=== PATIENT | male | born 1970 | race Two or more races ===

== ENCOUNTER 2023-08-20 22:00 | Emergency (ER) | payer SELFPAY ==
[~2023-08-20] VITALS: Ht 180.3 cm; Wt 75.0 kg
[2023-08-20 22:38] VITALS: PULSE 95; O2SAT 98
[2023-08-20 23:35] LABS: Hematocrit 41.8 % (41.0-53.0); Hemoglobin 14.4 g/dL (13.5-17.5); Red Blood Cells 4.21 10^6/uL (4.5-5.90); Red Cell Distribution Width 14.9 % (11.8-14.3); White Blood Cell 5.1 10^3/uL (4.4-10.8)
[2023-08-20 23:37] LABS: Basophils # (auto) 0 10 ^3/uL (0-0.2); Basophils % (auto) 0.4 % (0.0-2.0); Eosinophils # (auto) 0 10 ^3/uL (0-0.8); Lymphocytes # (auto) 0.6 10 ^3/uL (0.4-5.4); Lymphocytes % (auto) 12.5 % (10.0-50.0); Mean Corpuscular Hemoglobin 34.2 pg (28.0-32.0); Mean Corpuscular Hgb Conc. 34.5 g/dL (32.0-36.0); Mean Corpuscular Volume 99.3 fL (80.0-100.0); Monocytes # (auto) 0.7 10 ^3/uL (0-1.3); Monocytes % (auto) 14.2 % (0.0-12.0); Neutrophils # (auto) 3.8 10 ^3/uL (1.6-8.6); Neutrophils % (auto) 72.9 % (37.0-80.0); Nucleated Red Blood Cells % 0.5 %
[2023-08-20 23:59] LABS: Alanine Aminotransferase 78 U/L (7-40); Albumin 4.3 g/dL (3.2-4.8); Alkaline Phosphatase 86 U/L (46-116); Anion Gap 8 (5-15); Aspartate Aminotransferase 149 U/L (13-40); BUN/Creatinine Ratio 9.5 (10.0-20.0); Blood Urea Nitrogen 13 mg/dL (9-23); Calcium 9.7 mg/dL (8.5-10.1); Carbon Dioxide 25 mmol/L (20-30); Chloride 99 mmol/L (98-107); Glucose 100 mg/dL (74-106); Potassium 3.3 mmol/L (3.5-5.1); Sodium 132 mmol/L (136-145)
[2023-08-21] LABS: Bilirubin, Total 4.6 mg/dL (0.2-1.0); Total Protein 7.9 g/dL (5.7-8.2)
[2023-08-21 00:30] LABS: Platelet Estimate Decreased
[2023-08-21 00:31] LABS: Large Platelets FEW
[2023-08-21] MEDS: diphenhdrAMINE HCL 50 MG/1 ML VL IV ONE (01:15)
[2023-08-21] MEDS: ACETAMINOPHEN 325 MG TAB PO ONE (01:15)
[2023-08-21] MEDS: SODIUM CHLORIDE 0.9% 1,000 ML IVB ONE (01:15)
[2023-08-21] MEDS: SODIUM CHLORIDE 0.9% 1,000 ML IV ONE (01:15)
[2023-08-21] MEDS: LORazepam 2MG/ML-1ML VIAL IV ONE ×2 (01:15)
[2023-08-21 01:37] LABS: Magnesium 1.6 mg/dL (1.6-2.6)
[2023-08-21 01:39] LABS: INR 1.27 (0.9-1.15); Partial Thromboplastin Time 26.8 SEC (24.5-34.5); Prothrombin Time 13.2 sec (9.3-11.8)
[2023-08-21 02:00] LABS: Blood Alcohol < 3.0 mg/dL (<10)
[2023-08-21 02:18] LABS: Lactic Acid w/Reflex 2.4 mmol/L (0.4-2.0)
[2023-08-21] MEDS: levETIRAcetam 1000 mg/100ml 100 ML IV ONE (04:24)
[2023-08-21] MEDS: DEXTROSE (50%) 50ML SYRG IV ONE (04:45)
[2023-08-21 04:52] VITALS: BP 144/93; PULSE 102; RESP 14; TEMP 99.1; O2SAT 99
== END 2023-08-21 06:17 | disposition short-term general hospital (02) ==
LOC: EDBD 22:00 → ER 22:00
DX: S06.5X0A Traumatic subdural hemorrhage without loss of consciousness, initial encounter (principal); E11.9 Type 2 diabetes mellitus without complications; I10 Essential (primary) hypertension; X58.XXXA Exposure to other specified factors, initial encounter; Y93.89 Activity, other specified; Y92.89 Other specified places as the place of occurrence of the external cause; Y99.8 Other external cause status
CPT/HCPCS: 36415; 80053; 80320; 82962; 83605; 83735; 84484; 85025; 85610; 85730; 87040; 93005; 96361; 96365; 96375; 99285; J1200; J1953; J2060; J7030; J7042